=== PATIENT | male | born 1990 | race Two or more races ===

== ENCOUNTER → 2020-01-11 | Outpatient (CLI) | payer BC ==
--- NOTE | 2020-01-11 09:34 | CT ---
EXAMINATION TYPE: CT abdomen pelvis wo con DATE OF EXAM: 01/11/2020 COMPARISON: None HISTORY: 29-year-old male Right lower quadrant pain CT DLP: 666 mGycm. Automated exposure control for dose reduction was used. TECHNIQUE: Contiguous axial scanning of the abdomen and pelvis without IV contrast. Coronal and sagit aki reconstructions performed. FINDINGS: Heart normal size without pericardial effusion. Noncontrast appearance of the liver, gallbladder, adrenal glands, kidneys, spleen, and pancreas show no gross abnormality. No dilated small bowel, free fluid, free air. No mesenteric or retroperitoneal lymphadenopathy. Normal appendix. Mild overall stool burden. Mild proximal sigmoid diverticulosis. No pericolonic infl ammatory change. Mild circumferential wall thickening mid to distal rectum, axial image 130. No peric olonic inflammatory change. Mild circumferential bladder wall thickening. Right-sided pelvic phlebolith. Prostate gland measures 3.7 cm wide, within normal limits. No abnormal fluid collection in the pelvis or pelvic lymphadenopat hy. Bones: No osseous destructive process. IMPRESSION: 1. Mild circumferential wall thickening mid to distal rectum may relate to incomplete distention or nonspecific colitis. Clinically correlate. 2. Mild circumferential bladder wall thickening. Correlate to exclude cystitis. 3. Mild proximal sigmoid diverticulosis.
== END | disposition home or self-care (01) ==
LOC: RADCTMAIN 08:04
DX: K57.30 Diverticulosis of large intestine without perforation or abscess without bleeding (principal); K63.89 Other specified diseases of intestine; N32.89 Other specified disorders of bladder
CPT/HCPCS: 74176